=== PATIENT | male | born 1995 | race Caucasian/White ===

== ENCOUNTER 2024-01-04 17:33 | Emergency (ER) | payer MEDICAID ==
[2024-01-04] MEDS: Diphtheria,Pertussis(Acell),Tetanus Vaccine 0.5 ML Syringe IM ONE (18:50)
[2024-01-04] MEDS: Lidocaine 1% with EPINEPHrine 1:100,000 20 ML MDV INFILT PRN (18:52)
[2024-01-04] MEDS: Lidocaine 0.5% 50 ML SDV INFILT ONE (18:53)
== END 2024-01-04 19:00 | disposition home or self-care (01) ==
LOC: VM.ED 17:33
DX: S51.811A Laceration without foreign body of right forearm, initial encounter (principal); Z23 Encounter for immunization; W26.8XXA Contact with other sharp object(s), not elsewhere classified, initial encounter
CPT/HCPCS: 12001; 12031; 12041; 90471; 90715; 99282-25; 99283; J3490

== ENCOUNTER 2024-05-18 19:39 | Emergency (ER) | payer MEDICAID | END 2024-05-18 20:43 | disposition home or self-care (01) | LOC: VM.ED 19:39 | DX: S82.62XA Displaced fracture of lateral malleolus of left fibula, initial encounter for closed fracture (principal); Z79.899 Other long term (current) drug therapy; Z88.8 Allergy status to other drugs, medicaments and biological substances; X50.1XXA Overexertion from prolonged static or awkward postures, initial encounter | CPT/HCPCS: 73610-LT; 99283 ==